=== PATIENT | female | born 1995 | race Caucasian/White ===

== ENCOUNTER 2016-09-08 12:11 | Emergency (ER) | payer SELFPAY ==
--- NOTE | 2016-09-08 12:32 | Emergency Department Record ---
History of Present Illness - General Chief complaint: Pain Stated complaint: RECTAL PAIN Time Seen by Provider: 09/08/16 12:24 Source: Patient Mode of Arrival: Ambulatory Limitations: No limitations - History of Present Illness Initial comments: The patient is here due to feeling pain to the upper middle buttock area for one day. It is worse today then yesterday. She denies any issues like this in the past or any medical issues. MD Complaint: Other Onset/Timin -: Days(s) Location: Other Radiation: None Severity scale (1-10): >10 Quality: Sharp Consistency: Constant Improves with: Nothing Worsens with: Nothing Associated Symptoms: Denies other symptoms - Related Data Previous Rx's Medication Instructions Recorded Acetaminophen with Codeine 1 - 2 tab PO Q6H #20 tab 09/08/16 [Tylenol #3] Clindamycin HCl [Cleocin HCl] 300 mg PO QID #28 capsule 09/08/16 Allergies Allergy/AdvReac Type Severity Reaction Status Date / Time No Known Drug Allergies Allergy Verified 09/08/16 12:20 Travel Screening - Travel/Exposure Within Last 30 Days Have you traveled within the last 30 days?: No Review of Systems Constitutional: Denies: Chills, Fever Eyes: Denies: Eye discharge ENT: Denies: Congestion Respiratory: Denies: Cough, Dyspnea Past Medical History - SOCIAL HISTORY Smoking Status: Never smoker Alcohol Use: None Drug Use: None - RESPIRATORY Hx Respiratory Disorders: No - CARDIOVASCULAR Hx Cardio Disorders: No - NEURO Hx Neuro Disorders: No - GI Hx GI Disorders: Yes Comment:: colitis - Hx Genitourinary Disorders: No - ENDOCRINE Hx Endocrine Disorders: No - MUSCULOSKELETAL Hx Musculoskeletal Disorders: No - PSYCH Hx Psych Problems: No - HEMATOLOGY/ONCOLOGY Hx Hematology/Oncology Disorders: No Family Medical History Any Significant Family History?: No Physical Exam - General General Appearance: Alert, Oriented x3, Cooperative, No acute distress - Head Head exam: Atraumatic, Normocephalic, Normal inspection - Eye Eye exam: Normal appearance, PERRL - Respiratory Respiratory exam: Normal lung sounds bilaterally. negative: Respiratory distress - Cardiovascular Cardiovascular Exam: Regular rate, Normal rhythm, Normal heart sounds - GI/Abdominal GI/Abdominal exam: Soft, Normal bowel sounds. negative: Distended, Rebound, Rigid, Tenderness - Rectal Rectal exam: Other (There is a 3x3 cm area of tenderness and mild induration to the superior mid buttock area over the coccyx. There is no fluctuance or edema.) Course Vital Signs 09/08/16 12:15 Temperature 98.6 F Pulse Rate 121 H Respiratory 18 Rate Blood Pressure 135/89 Pulse Ox 98 - Reevaluation(s) Reevaluation #1: I did discuss the need for oral Abx's and pain medicines and warm soaks to the affected area. The patient is to return to the ER in 1-2 days for recheck and possible I and D. I did discuss the fact that the area does not appear to be ready for the I and D at this time. 09/08/16 12:40 Disposition Disposition: Discharge Clinical Impression: Carbuncle of buttock Disposition: Home, Self-Care Condition: (1) Good Instructions: Furunculosis and Carbunculosis (ED) Additional Instructions: Please take the pain medicine along with the antibiotic as directed and use the warm soaks during the day to the affected area. Please see your PCP or return to the ER in 1-2 days if not better. Prescriptions: Clindamycin HCl [Cleocin HCl] 300 mg PO QID #28 capsule Acetaminophen with Codeine [Tylenol #3] 1 - 2 tab PO Q6H #20 tab Forms: Patient Portal Access Time of Disposition: 12:43
== END 2016-09-08 13:07 | disposition home or self-care (01) ==
LOC: ER 12:11
DX: L02.33 Carbuncle of buttock (principal)
CPT/HCPCS: 99283

== ENCOUNTER 2016-09-09 10:43 | Emergency (ER) | payer SELFPAY ==
--- NOTE | 2016-09-09 11:08 | Emergency Department Record ---
History of Present Illness - General Chief complaint: Abscess Stated complaint: LOW BACK PAIN Time Seen by Provider: 09/09/16 10:49 Source: Patient Mode of Arrival: Ambulatory Limitations: No limitations - History of Present Illness Initial comments: The patient is here due to an abscess over her coccyx area. She was seen yesterday and due to it not being ready for the I and D we had her use soaks and to come back today. She states it is more painful now. complaint: Abscess/boil Onset/Timin -: Days(s) Location: Buttocks Severity: Moderate Severity scale (1-10): 9 Quality: Sharp, Stabbing Consistency: Constant Improves with: None Worsens with: None Context: None Associated symptoms: Denies other symptoms Treatments Prior to Arrival: None - Related Data Previous Rx's Medication Instructions Recorded Acetaminophen with Codeine 1 - 2 tab PO Q6H #20 tab 09/08/16 [Tylenol #3] Clindamycin HCl [Cleocin HCl] 300 mg PO QID #28 capsule 09/08/16 Hydrocodone/Acetaminophen [Reinbeck 1 - 2 each PO .EVERY 4-6 HRS PRN 09/09/16 5-325 Tablet] #20 tablet Allergies Allergy/AdvReac Type Severity Reaction Status Date / Time No Known Drug Allergies Allergy Verified 09/08/16 12:20 Travel Screening - Travel/Exposure Within Last 30 Days Have you traveled within the last 30 days?: No - Travel/Exposure Within Last Year Have you traveled outside the [place] in the last year?: No - Additonal Travel Details Have you been exposed to anyone with a communicable illness?: No - Travel Symptoms Symptom Screening: None Past Medical History - SOCIAL HISTORY Smoking Status: Never smoker Alcohol Use: None Drug Use: None - RESPIRATORY Hx Respiratory Disorders: No - CARDIOVASCULAR Hx Cardio Disorders: No - NEURO Hx Neuro Disorders: No - GI Hx GI Disorders: Yes Comment:: colitis - Hx Genitourinary Disorders: No - ENDOCRINE Hx Endocrine Disorders: No - MUSCULOSKELETAL Hx Musculoskeletal Disorders: No - PSYCH Hx Psych Problems: No - HEMATOLOGY/ONCOLOGY Hx Hematology/Oncology Disorders: No Family Medical History Any Significant Family History?: No Physical Exam - General General Appearance: Alert, Oriented x3, Cooperative, No acute distress - Head Head exam: Atraumatic, Normocephalic, Normal inspection - Eye Eye exam: Normal appearance, PERRL - Rectal Rectal exam: Other (There is a 5x5 cm area of erythema with a central area of fluctuance. ) Course Vital Signs 09/09/16 10:49 Temperature 98.2 F Pulse Rate 111 H Respiratory 18 Rate Blood Pressure 122/72 Pulse Ox 98 - Reevaluation(s) Reevaluation #1: Procedure note: The abscess area was prepped with betadine and anesth. with 7 cc Lido 1% with Epi. The fluctuant area was opened up with a # 11 blade with a 1 cm incision and a mild amount of blood purulent fluid was expressed. The abscess then was probed twice with sterile qtips, and packed loosely with iodoform gauze. There were no complications. 09/09/16 12:09 Reevaluation #2: At discharge the patient was doing a lot better with much less pain. She felt ready for home. 09/09/16 12:00 Disposition Disposition: Discharge Clinical Impression: Boil, buttock Disposition: Home, Self-Care Condition: (1) Good Instructions: Abscess Incision and Drainage (ED) Additional Instructions: Please take the Reinbeck and stop the Tylenol # 3. Please continue the Abx. Please have the packing removed in 2 days and then soak or run water on the area daily. Return to the ER for any problems or issues. Please see your PCP next week to be sure the area is healing normally. Prescriptions: Hydrocodone/Acetaminophen [Reinbeck 5-325 Tablet] 1 - 2 each PO .EVERY 4-6 HRS PRN #20 tablet PRN Reason: Pain Forms: Patient Portal Access Time of Disposition: 11:46
[2016-09-09] MEDS: MORPHINE SULFATE 5 MG/ML PFS IM ONE (11:12)
[2016-09-09] MEDS: ONDANSETRON 4 MG ODT TABLET SL ONE (11:12)
== END 2016-09-09 11:54 | disposition home or self-care (01) ==
LOC: ER 10:43
DX: L02.32 Furuncle of buttock (principal)
CPT/HCPCS: 10060 ×2; 99283 ×2; 96372; J2270

== ENCOUNTER 2018-05-06 11:58 | Emergency (ER) | payer SELFPAY ==
--- NOTE | 2018-05-06 12:22 | Emergency Department Record ---
History of Present Illness - General Chief complaint: Extremity Problem Stated complaint: LEFT INDEX FINGER INFECTED Time Seen by Provider: 05/06/18 12:06 Source: Patient Mode of Arrival: Ambulatory Limitations: No limitations - History of Present Illness Initial comments: The patient cut a hang nail on her L 2nd finger and since it has become swollen and tender. She denies any other issues. Complaint: Extremity pain Onset/Timin -: Days(s) Location: Left, Hand Severity scale (1-10): 10 Quality: Aching, Sharp Consistency: Constant, Intermittent Improves with: Nothing Worsens with: Nothing - Related Data Previous Rx's Medication Instructions Recorded Cephalexin [Keflex] 500 mg PO QID #28 cap 05/06/18 Allergies Allergy/AdvReac Type Severity Reaction Status Date / Time No Known Drug Allergies Allergy Verified 05/06/18 12:09 Travel Screening - Travel/Exposure Within Last 30 Days Have you traveled within the last 30 days?: No - Travel/Exposure Within Last Year Have you traveled outside the [place] in the last year?: No - Additonal Travel Details Have you been exposed to anyone with a communicable illness?: No - Travel Symptoms Symptom Screening: None Review of Systems Constitutional: Denies: Chills, Fever Past Medical History - SOCIAL HISTORY Smoking Status: Never smoker Alcohol Use: None Drug Use: None - RESPIRATORY Hx Respiratory Disorders: No - CARDIOVASCULAR Hx Cardio Disorders: No - NEURO Hx Neuro Disorders: No - GI Hx GI Disorders: Yes Comment:: colitis - Hx Genitourinary Disorders: No - ENDOCRINE Hx Endocrine Disorders: No - MUSCULOSKELETAL Hx Musculoskeletal Disorders: No - PSYCH Hx Psych Problems: No - HEMATOLOGY/ONCOLOGY Hx Hematology/Oncology Disorders: No Family Medical History Any Significant Family History?: Yes Physical Exam - General General Appearance: Alert, Cooperative, No acute distress - Eye Eye exam: Normal appearance - ENT ENT exam: Normal exam - Extremities Extremities exam: negative: Normal inspection (There is a paronychia to the L 2nd finger at the ulnar side nail fold. There is no swelling or tenderness to the finger pad or flexor tendon.) Image of Finger Tip: 1 - Area of Paronychia. Course Vital Signs 05/06/18 12:06 Temperature 98.4 F Pulse Rate 60 Respiratory 18 Rate Blood Pressure 109/82 Pulse Ox 98 - Reevaluation(s) Reevaluation #1: Procedure note: The L 2nd finger was anesth. using a digital block technique with 3 cc's Lido 1%. A # 11 blade was used to open up the paronychia. A small amount of purulence was removed. There were no complications. 05/06/18 12:27 Disposition Disposition: Discharge Clinical Impression: Paronychia of finger Qualifiers: Laterality: left Qualified Code(s): L03.012 - Cellulitis of left finger Disposition: Home, Self-Care Condition: (2) Stable Instructions: Paronychia (ED) Additional Instructions: Please take the Keflex as directed and soak the finger every hour in warm water. Please keep a bandaid in place and return to the ER or your PCP on Wednesday if not better. Prescriptions: Cephalexin [Keflex] 500 mg PO QID #28 cap Forms: Patient Portal Access Time of Disposition: 12:29 Quality - Quality Measures Quality Measures: N/A - Blood Pressure Screening View Details: Yes Does Patient Have Any of the Following: No Blood Pressure Classification: Pre-Hypertensive BP Reading Systolic Measurement: 109 Diastolic Measurement: 82 Screening for High Blood Pressure: < Pre-Hypertensive BP, F/U Documented > [ [id number]] Pre-Hypertensive Follow-up Interventions: Referral to alternative/primary care provider.
== END 2018-05-06 12:38 | disposition home or self-care (01) ==
LOC: ER 11:58
DX: L03.012 Cellulitis of left finger (principal)
CPT/HCPCS: 26010; 99283